=== PATIENT | female | born 1935 | race Caucasian/White ===

== ENCOUNTER → 2019-07-22 | Outpatient (CLI) | payer MEDICARE ==
[2019-07-22 12:17] VITALS: BP 133/83; PULSE 68; RESP 16; TEMP 97.7; BMI 55.2
--- NOTE | 2019-07-22 12:54 | P.GSHP ---
History of Present Illness H&P Date: 07/22/19 Chief Complaint: abnormal ultrasound of the left breast Keyona is an 84-year-old white female who presents for breast evaluation. She states that approximately 3 months ago she noted in the area of increased nodularity in the left breast. That site has not increased in size. It is uncomfortable to pressure. She has not noted any nipple discharge or skin changes. She has not noted any other lumps or masses in her breast. She does not relate any history of trauma or infection in the breast. The patient did have a bilateral mammogram done on [id number] and she was subsequently recommended to have a left breast ultrasound. The left breast ultrasound revealed a 2 x 1.5 cm irregular shadowing mass in the 2 o'clock position at the site of the palpable abnormality. It was recommended she undergo left breast core biopsy. The patient drinks about a 1/2 cup of coffee/day. The patient does not smoke and is not exposed to secondhand smoke. She eats chocolate intermittently. Family history: 1. mother colon cancer 2. daughter: breast cancer DCIS 2011 at 46 3. daughter: leukemia HOrmoanl History: menarche: 14 1 [place], breast fed: yes, first born at 22 menopause: 49 BCP: none hormones: 3 years, than a natural replacement: 3 years Surgical history: 1. back: cyst 2. hip replacement bilateral Medical History: 1. TIA three years ago, some weakness on the left side Social History: smoke: none alcohol: none drugs: none - Constitutional Constitutional: Reports sweats - EENT Comment: wears contacts Eyes: denies blurred vision, denies pain Ears: bilateral: decreased hearing (hearing aids), deny: tinnitus Ears, nose, mouth and throat: Denies headache, Denies sore throat - Breasts Breasts: bilateral: as per HPI - Cardiovascular Cardiovascular: Denies chest pain, Denies shortness of breath - Respiratory Respiratory: Denies cough, Denies 7 - Gastrointestinal Gastrointestinal: Denies abdominal pain, Denies diarrhea, Denies nausea, Denies vomiting - Genitourinary (Female) Comment: bladder sling Genitourinary: Denies dysuria, Denies hematuria - Menstruation Menstruation: Reports postmenopausal - Musculoskeletal Comment: arthritis - Integumentary Integumentary: Denies pruritus, Denies rash - Neurological Comment: TIA - Psychiatric Psychiatric: Denies anxiety, Denies depression - Endocrine Endocrine: Denies fatigue, Denies weight change - Hematologic/Lymphatic Comment: aspirin - Allergic/Immunologic Allergic/Immunologic: Reports as per HPI Medications and Allergies Home Medications Medication Instructions Recorded Confirmed Type Aspirin [Adult Low Dose Aspirin EC] 81 mg PO DAILY 07/22/19 07/22/19 History Cholecalciferol [Vitamin D3 (25 1,000 unit PO DAILY 07/22/19 07/22/19 History Mcg = 1000 Iu)] Cinnamon Bark [Cinnamon] 500 mg PO DAILY 07/22/19 07/22/19 History Flaxseed Oil 1,000 mg PO DAILY 07/22/19 07/22/19 History Folic Acid 0.4 mg PO DAILY 07/22/19 07/22/19 History Ubidecarenone [Co Q-10] 100 mg PO DAILY 07/22/19 07/22/19 History Allergies Allergy/AdvReac Type Severity Reaction Status Date / Time No Known Allergies Allergy Unverified 07/22/19 11:57 Surgical - Exam BMI 25.5 - General well developed, well nourished, no distress - Eyes normal ocular movement, no icteric - ENT no hearing loss, no congestion - Neck no masses, trachea midline - Respiratory normal respiratory effort, clear to auscultation - Cardiovascular Rhythm: regular Heart Sounds: normal: S1, S2 - Abdomen Abdomen: soft, non tender, no guarding, no rigid, no rebound - Integumentary normal turgor - Neurologic no disoriented, no combative - Musculoskeletal normal gait, normal posture - Psychiatric oriented to time, oriented to person, oriented to place, speech is normal, memory intact breast exam: Right breast: Multi-positional exam no dominant masses or nodules of concern, fibrocystic changes Right axilla: No adenopathy of concern Left breast: Multi-positional exam fibrocystic changes, in the upper outer quadrant is approximately 3 x 3 cm area of firmness which corresponds with that which was seen on ultrasound Left axilla: No adenopathy of concern Results ultrasound results reviewed Assessment and Plan Assessment: Impression: 1. left breast mass 2. abnormal ultrasound left breast 3. prior history of TIA 4. family history of cancer 5. family history of bresat cancer Plan: 1. Ultrasound-guided core biopsy of left breast mass. 2. Patient will stop aspirin for 3-5 days prior as per Dr. Valenzuela's office 3. Follow-up after ultrasound core biopsy of left breast Cc: Dr. Valenzuela
== END | disposition home or self-care (01) ==
LOC: WWCWWP 11:35
PROVIDERS: ATTEND Surgery
DX: Z53.9 Procedure and treatment not carried out, unspecified reason (principal)

== ENCOUNTER → 2019-08-01 | Day surgery (SDC) | payer MEDICARE ==
[2019-08-01 07:24] VITALS: RESP 16; TEMP 97.6
[2019-08-01 09:37] VITALS: BP 128/56; PULSE 72
--- NOTE | 2019-08-01 13:37 | USB ---
EXAMINATION TYPE: US biopsy breast VAD LT, MG diagnostic mammo LT wo CAD DATE OF EXAM: 08/01/2019 CLINICAL HISTORY: R92.8 Abnormal Mammogram. TECHNIQUE: Ultrasound guided core biopsy of left breast. COMPARISON: Outside left breast ultrasound and mammogram dated 06/30/2019 and 06/29/2019 respectively. FINDINGS: The procedure of ultrasound guided core biopsy was explained to the patient. Benefits, alt ernatives, and risks were discussed. An informed consent was then obtained. Preprocedural timeout w as performed. Consent was obtained from the patient for the patient's daughter to be in the room duri ng the procedure. The patient was placed in supine positioning for imaging and for the procedure. The overlying skin w as prepped and draped in usual sterile fashion. The approximately 2.4 cm mass was localized under ult rasound of the 2:00 position in the left breast. However on preprocedural imaging this region does el ongated with multiple smaller masses marked on image 2/16 measuring 5.1 cm in total length. It is not ed and discussed with the patient and patient's family that there are likely associated calcification s spanning greater than 10 cm. Stereotactic guided biopsy will be performed of the most anterior site to establish extent of disease. The 10 cc of 1% lidocaine was used as anesthetic into the skin and subcutaneous tissue and 10 cc of l idocaine with epinephrine was utilized to anesthetize the subcutaneous tissues at the site of biopsy. Under ultrasound guidance, a 12-gauge vacuum assisted biopsy gun device was used to obtain 9 core marko ples. The initial 5 core samples yielded only necrotic fluid and therefore biopsies were performed of the periphery of the mass as well. Following this, a coil-shaped biopsy marker was left at the site of biopsy within the mass. Postprocedure mammogram demonstrates appropriate biopsy marker placement The patient tolerated the procedure well without any immediate complication. The patient was kept in the radiology department for short stay after the procedure and then discharged home in stable condi tion. IMPRESSION: Successful, uncomplicated ultrasound guided core biopsy of a highly suspicious necrotic 2 .4 cm left breast mass with multiple smaller masses adjacent to spanning 5.1 cm in total length and a ssociated known calcifications spanning over 10 cm for which stereotactic guided biopsy will be perfo rmed to establish extent of disease, full pathology results to follow.
== END ==
LOC: RADUSWWP 07:08
PROVIDERS: ATTEND Surgery
DX: C50.912 Malignant neoplasm of unspecified site of left female breast (principal)
CPT/HCPCS: 88305; 88342; 88341; 77065; 19083; A4648; J2001

== ENCOUNTER → 2019-08-05 | Outpatient (CLI) | payer MEDICARE ==
[2019-08-05 15:51] VITALS: BP 153/83; PULSE 71; RESP 18; TEMP 97.6; BMI 25.0
--- NOTE | 2019-08-05 17:20 | P.PN ---
Subjective Progress Note Date: 08/05/19 Keyona is an 84-year-old white female who presents for breast evaluation. She states that approximately 3 months ago she noted in the area of increased nodularity in the left breast. That site has not increased in size. It is uncomfortable to pressure. She has not noted any nipple discharge or skin c hanges. She has not noted any other lumps or masses in her breast. She does not relate any history of trauma or infection in the breast. The patient did have a bilateral mammogram done on and she was subsequently recommended to have a left breast ultrasound. The left breast ultrasound revealed a 2 x 1.5 cm irregular shadowing mass in the 2 o'clock position at the site of the palpable abnormality. It was recommended she undergo left breast core biopsy. The patient drinks about a 1/2 cup of coffee/day. The patient does not smoke and is not exposed to secondhand smoke. She eats chocolate intermittently. The patient had a core biopsy of the lesion in the left breast which was positive for invasive ductal carcinoma. Her radiographs were again reviewed with Dr. Uriostegui and it was felt like there is extensive area of microcalcifications of concern and she is scheduled for a stereotactic core biopsy of this area in the near future. Family history: 1. mother colon cancer 2. daughter: breast cancer DCIS 2011 at 46 3. daughter: leukemia HOrmoanl History: menarche: 14 1 [place], breast fed: yes, first born at 22 menopause: 49 BCP: none hormones: 3 years, than a natural replacement: 3 years Surgical history: 1. back: cyst 2. hip replacement bilateral Medical History: 1. TIA three years ago, some weakness on the left side Social History: smoke: none alcohol: none drugs: none - Constitutional Constitutional: Reports sweats - EENT Comment: wears contacts Eyes: denies blurred vision, denies pain Ears: bilateral: decreased hearing (hearing aids), deny: tinnitus Ears, nose, mouth and throat: Denies headache, Denies sore throat - Breasts Breasts: bilateral: as per HPI - Cardiovascular Cardiovascular: Denies chest pain, Denies shortness of breath - Respiratory Respiratory: Denies cough, Denies 7 - Gastrointestinal Gastrointestinal: Denies abdominal pain, Denies diarrhea, Denies nausea, Denies vomiting - Genitourinary (Female) Comment: bladder sling Genitourinary: Denies dysuria, Denies hematuria - Menstruation Menstruation: Reports postmenopausal - Musculoskeletal Comment: arthritis - Integumentary Integumentary: Denies pruritus, Denies rash - Neurological Comment: TIA - Psychiatric Psychiatric: Denies anxiety, Denies depression - Endocrine Endocrine: Denies fatigue, Denies weight change - Hematologic/Lymphatic Comment: aspirin Objective - Vital Signs Vital signs: Vital Signs Temp 97.6 F 08/05/19 15:49 Pulse 71 08/05/19 15:49 Resp 18 08/05/19 15:49 BP 153/83 08/05/19 15:49 Pulse Ox 98 08/05/19 15:49 Intake & Output 08/04/19 08/05/19 08/05/19 18:59 06:59 18:59 Weight 72.575 kg - Exam BMI 25.1 - Constitutional General appearance: Present: average body habitus - EENT Eyes: Present: EOMI ENT: Present: hearing grossly normal - Neck Neck: Present: normal ROM - Respiratory Respiratory: bilateral: CTA - Cardiovascular Rhythm: regular Heart sounds: normal: S1, S2 - Integumentary Integumentary: Present: normal turgor - Psychiatric Psychiatric: Present: A&O x's 3, appropriate affect, intact judgment & insight - Additional findings Additional findings: Left breast: biopsy site clean and dry no evidence of infection palpable mass remains present Assessment and Plan Assessment: Impression: 1. 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 Extensive microcalcifications in left breast for which stereo biopsy scheduled in the near future I have had a long discussion with the patient and her daughter regarding the biopsy results. I believe that the disease is most likely extensive in the breast and would be better able to determine this after stereotactic core biopsy. The patient is very concerned about conserving her breast and has asked about nipple sparing mastectomy and breast reconstruction. Again I do not have all the information yet available and would like to see the results of the stereo biopsy of the microcalcifications. The patient's daughter underwent treatment for breast cancer in the [place] area and is seeking a second opinion at that facility. Plan: 1. Stereotactic core biopsy left breast 2. Follow-up after stero core biopsy
== END | disposition home or self-care (01) ==
LOC: WWCWWP 15:40
PROVIDERS: ATTEND Surgery
DX: Z53.9 Procedure and treatment not carried out, unspecified reason (principal)

== ENCOUNTER → 2019-11-16 | Outpatient (CLI) | payer MEDICARE ==
--- NOTE | 2019-11-16 13:55 | XR ---
EXAMINATION TYPE: XR chest 2V DATE OF EXAM: 11/16/2019 COMPARISON: 06/16/2013 INDICATION: History of breast cancer TECHNIQUE: Frontal and lateral views of the chest are obtained. FINDINGS: The heart size is normal. The pulmonary vasculature is normal. There may be some subtle increased infiltrate within the right lower lobe. Lungs are otherwise clear. Note is made of postsurgical changes within the left breast.. IMPRESSION: 1. Suggestion of a mild posterior right lower lobe infiltrate. Correlate for pneumonia. Follow-up can be performed.
== END | disposition home or self-care (01) ==
LOC: RADXRMAIN 13:09
PROVIDERS: ATTEND Internal Medicine Medical Oncology
DX: C50.412 Malignant neoplasm of upper-outer quadrant of left female breast (principal)
CPT/HCPCS: 71046

== ENCOUNTER → 2021-06-10 | Outpatient (CLI) | payer MEDICARE, OTHER ==
--- NOTE | 2021-06-10 15:34 | XR ---
EXAMINATION TYPE: XR KUB DATE OF EXAM: 06/10/2021 COMPARISON: None HISTORY: Abdomen pain TECHNIQUE: AP abdomen FINDINGS: Normal colonic bowel gas is present. Psoas margins are normal. Organomegaly is not evident. No mass effect is evident. Bilateral hip prostheses are present. IMPRESSION: 1. Unremarkable abdomen
== END | disposition home or self-care (01) ==
LOC: RADXRYALE 14:55
PROVIDERS: ATTEND Internal Medicine Medical Oncology
DX: R10.9 Unspecified abdominal pain (principal)
CPT/HCPCS: 74018

== ENCOUNTER → 2022-10-06 | Outpatient (CLI) | payer MEDICARE, OTHER ==
--- NOTE | 2022-10-06 19:28 | XR ---
EXAMINATION TYPE: XR knee complete bilateral DATE OF EXAM: 10/06/2022 4:55 PM INDICATION: Patient age:Female; 87 years old; Reason for study: [id number],R29.91 LOU KNEE PAIN,RT RIB PAIN; [facility]. COMPARISON: None. TECHNIQUE: Both knees were examined in frontal, lateral, and oblique projections. FINDINGS: No evidence of any acute osseous pathology. No soft tissue swelling or joint effusion not ed. Mild tricompartmental joint space narrowing of both knees. No aggressive osseous lesion. IMPRESSION: 1. No acute osseous pathology. 2. Mild bilateral tricompartmental osteoarthritic changes.
--- NOTE | 2022-10-06 19:30 | XR ---
EXAMINATION TYPE: XR ribs RT w pa chest xray DATE OF EXAM: 10/06/2022 4:55 PM INDICATION: Patient age:Female; 87 years old; Reason for study: [id number],R29.91 LOU KNEE PAIN,RT RIB PAIN; [facility]. COMPARISON: Chest radiograph 11/16/2019. TECHNIQUE: Frontal and oblique views of the right FINDINGS: The ribs have a normal appearance. No evidence of fracture. Overall, the lungs are clear. The cardiac silhouette is normal in size. The remaining osseous structures are intact. Degenerative changes of the visualized spine. Postsurgical changes of the left breast. Few small calcified loose bodies demonstrated within the right shoulder joint. IMPRESSION RIBS: No acute osseous pathology.
== END | disposition home or self-care (01) ==
LOC: RADXRYALE 16:30
PROVIDERS: ATTEND Internal Medicine
DX: R29.91 Unspecified symptoms and signs involving the musculoskeletal system (principal); M17.11 Unilateral primary osteoarthritis, right knee

== ENCOUNTER 2023-04-18 10:39 | Emergency (ER) | payer MEDICARE, OTHER ==
[2023-04-18 12:17] LABS: Basophils % (A) 0 %; Eosinophils % (A) 1 %; HCT 30.2 % (34.0-46.0); HGB 9.6 gm/dL (11.4-16.0); Hypochromasia Moderate; Lymphocytes # (A) 1.1 k/uL (1.0-4.8); Lymphocytes % (A) 21 %; MCH 24.9 pg (25.0-35.0); MCHC 31.8 g/dL (31.0-37.0); MCV 78.2 fL (80.0-100.0); Mean Platelet Volume 9.2; Monocytes # (A) 0.3 k/uL (0-1.0); Monocytes % (A) 6 %; Neutrophils # (A) 3.7 k/uL (1.3-7.7); Neutrophils % (A) 70 %; Platelet Count 248 k/uL (150-450); Poikilocytosis Slight; RBC 3.86 m/uL (3.80-5.40); RDW 15.3 % (11.5-15.5); WBC 5.2 k/uL (3.8-10.6)
--- NOTE | 2023-04-18 12:21 | ED ---
Abdominal Pain HPI - General Chief Complaint: Abdominal Pain Stated Complaint: abd pain Time Seen by Provider: 04/18/23 11:41 Source: patient Mode of arrival: ambulatory Limitations: no limitations - History of Present Illness Initial Comments: 89-year-old female past medical history significant for diverticulosis presents to the ED with a chief complaint of abdominal pain. She states for the past 2 days has had abdominal pain that is worse with standing improved with laying and a heating pad. States her last bowel movement was yesterday nonbloody denies diarrhea or constipation. Denies urinary complaints. Associated nausea no vomiting. She does admit that she did not take her home blood pressure medications today. No other complaints. - Related Data Home Medications Medication Instructions Recorded Confirmed Aspirin [Adult Low Dose Aspirin EC] 81 mg PO DAILY 07/22/19 08/05/19 Cholecalciferol [Vitamin D3 (25 1,000 unit PO DAILY 07/22/19 08/05/19 Mcg = 1000 Iu)] Cinnamon Bark [Cinnamon] 500 mg PO DAILY 07/22/19 08/05/19 Folic Acid 0.4 mg PO DAILY 07/22/19 08/05/19 Rosuvastatin [Crestor] 10 mg PO HS 07/22/19 08/05/19 Ubidecarenone [Co Q-10] 100 mg PO DAILY 07/22/19 08/05/19 flaxseed oiL [Flaxseed Oil] 1,000 mg PO DAILY 07/22/19 08/05/19 Levothyroxine Sodium 100 mcg PO DAILY 07/25/19 08/05/19 Turmeric Root Extract [Turmeric] 500 mg PO DAILY 07/25/19 08/05/19 Allergies Allergy/AdvReac Type Severity Reaction Status Date / Time ciprofloxacin [From Cipro] Allergy Mild Unknown Verified 08/05/19 15:49 Review of Systems ROS Statement: Those systems with pertinent positive or pertinent negative responses have been documented in the HPI. ROS Other: All systems not noted in ROS Statement are negative. Past Medical History Past Medical History: Cancer, Diabetes Mellitus, Hypertension, Thyroid Disorder Additional Past Medical History / Comment(s): peptic ulcers, diverticulosis History of Any Multi-Drug Resistant Organisms: None Reported Past Surgical History: Joint Replacement, Orthopedic Surgery Additional Past Surgical History / Comment(s): breast reconstruction Smoking Status: Never smoker Past Alcohol Use History: None Reported Past Drug Use History: None Reported General Exam Limitations: no limitations General appearance: alert, in no apparent distress Head exam: Present: atraumatic, normocephalic Eye exam: Present: normal appearance ENT exam: Present: normal exam, mucous membranes moist Neck exam: Present: normal inspection Respiratory exam: Present: normal lung sounds bilaterally Cardiovascular Exam: Present: regular rate, normal rhythm, systolic murmur (2/6) GI/Abdominal exam: Present: soft (No rebound guarding or rigidity.), tenderness (Tenderness in the left lower quadrant. No CVA tenderness to palpation bilaterally.) Neurological exam: Present: alert, oriented X3 Psychiatric exam: Present: normal affect, normal mood Skin exam: Present: warm, dry Course Vital Signs 04/18/23 04/18/23 11:16 13:36 Temperature 97.7 F Pulse Rate 74 75 Respiratory 20 16 Rate Blood Pressure 199/79 186/93 O2 Sat by Pulse 98 99 Oximetry Medical Decision Making - Medical Decision Making Was pt. sent in by a medical professional or institution (, PA, POWER HAMMER OPERATOR, urgent care, hospital, or halfway...) When possible be specific @ -No Did you speak to anyone other than the patient for history (EMS, parent, family, police, friend...)? What history was obtained from this source @ -Spoke to patient's daughter who notes history of diverticulosis and history of anemia and hemoglobin of 7 in January Did you review nursing and triage notes (agree or disagree)? Why? @ -I reviewed and agree with nursing and triage notes Were old charts reviewed (outside hosp., previous admission, EMS record, old EKG, old radiological studies, urgent care reports/EKG's, halfway records)? Report findings @ -Old charts reviewed showing no pertinent medical history Differential Diagnosis (chest pain, altered mental status, abdominal pain women, abdominal pain men, vaginal bleeding, weakness, fever, dyspnea, syncope, headache, dizziness, GI bleed, back pain, seizure, CVA, palpatations, mental health, musculoskeletal)? @ -Differential Abdominal Pain Women: Appendicitis, Cholecystitis, diverticulosis, ischemic bowel, pancreatitis, hepatitis, UTI, gastroenteritis, AAA, incarcerated hernia, bowel obstruction, constipation, inflammatory bowel, hepatitis, peptic ulcer disease, splenic infarction, perforated viscus, vulvitis, ovarian torsion, PID, kidney stone, placenta abruption, this is not meant to be an all-inclusive list EKG interpreted by me (3pts min.). @ -As above X-rays interpreted by me (1pt min.). @ -KUB showed no acute process CT interpreted by me (1pt min.). @ -CT of the abdomen and pelvis with contrast showed no acute findings. U/S interpreted by me (1pt. min.). @ -None done What testing was considered but not performed or refused? (CT, X-rays, U/S, labs)? Why? @ -None What meds were considered but not given or refused? Why? @ -None Did you discuss the management of the patient with other professionals (professionals i.e. , PA, POWER HAMMER OPERATOR, lab, RT, psych nurse, social welfare research worker, hog worker, teacher, property disposal officer, telephonic case manager)? Give summary @ -No Was smoking cessation discussed for >3mins.? @ -No Was critical care preformed (if so, how long)? @ -No Were there social determinants of health that impacted care today? How? (Homelessness, low income, unemployed, alcoholism, drug addiction, transportation, low edu. Level, literacy, decrease access to med. care, half-way, rehab)? @ -No Was there de-escalation of care discussed even if they declined (Discuss DNR or withdrawal of care, Hospice)? DNR status @ -No What co-morbidities impacted this encounter? (DM, HTN, Smoking, COPD, CAD, Cancer, CVA, ARF, Chemo, Hep., AIDS, mental health diagnosis, sleep apnea, morbid obesity)? @ -None Was patient admitted / discharged? Hospital course, mention meds given and route, prescriptions, significant lab abnormalities, going to OR and other p ertinent info. @ -Discharged. Labs significant for a hemoglobin of 9.6 however patient notes history of anemia and currently not symptomatic. Labs otherwise unremarkable. Imaging studies showed no acute findings. Patient had improvement of pain with Tylenol. Patient discharged home in stable condition. Undiagnosed new problem with uncertain prognosis? @ -No Drug Therapy requiring intensive monitoring for toxicity (Heparin, Nitro, Insulin, Cardizem)? @ -No Were any procedures done? @ -No Diagnosis/symptom? @ -Diverticulitis Acute, or Chronic, or Acute on Chronic? @ -Acute Uncomplicated (without systemic symptoms) or Complicated (systemic symptoms)? @ -Uncomplicated Side effects of treatment? @ -No Exacerbation, Progression, or Severe Exacerbation? @ -No Poses a threat to life or bodily function? How? (Chest pain, USA, NH, pneumonia, PE, COPD, DKA, ARF, appy, cholecystitis, CVA, Diverticulitis, Homicidal, Suicidal, threat to staff... and all critical care pts) @ -No - Lab Data Result diagrams: 04/18/23 11:51 04/18/23 11:51 Lab Results 04/18/23 04/18/23 04/18/23 Range/Units 11:51 11:51 11:51 WBC 5.2 (3.8-10.6) k/uL RBC 3.86 (3.80-5.40) m/uL Hgb 9.6 L (11.4-16.0) gm/dL Hct 30.2 L (34.0-46.0) % MCV 78.2 L (80.0-100.0) fL MCH 24.9 L (25.0-35.0) pg MCHC 31.8 (31.0-37.0) g/dL RDW 15.3 (11.5-15.5) % Plt Count 248 (150-450) k/uL MPV 9.2 Neutrophils % 70 % Lymphocytes % 21 % Monocytes % 6 % Eosinophils % 1 % Basophils % 0 % Neutrophils # 3.7 (1.3-7.7) k/uL Lymphocytes # 1.1 (1.0-4.8) k/uL Monocytes # 0.3 (0-1.0) k/uL Eosinophils # 0.0 (0-0.7) k/uL Basophils # 0.0 (0-0.2) k/uL Hypochromasia Moderate Poikilocytosis Slight Sodium 131 L (137-145) mmol/L Potassium 4.0 (3.5-5.1) mmol/L Chloride 96 L (98-107) mmol/L Carbon Dioxide 27 (22-30) mmol/L Anion Gap 8 mmol/L BUN 17 (7-17) mg/dL Creatinine 0.96 (0.52-1.04) mg/dL Est GFR (CKD-EPI)AfAm 62 (>60 ml/min/1.73 sqM) Est GFR (CKD-EPI)NonAf 53 (>60 ml/min/1.73 sqM) Glucose 139 H (74-99) mg/dL Calcium 9.4 (8.4-10.2) mg/dL Total Bilirubin 0.9 (0.2-1.3) mg/dL AST 29 (14-36) U/L ALT 22 (4-34) U/L Alkaline Phosphatase 53 (38-126) U/L Total Protein 6.6 (6.3-8.2) g/dL Albumin 3.9 (3.5-5.0) g/dL Amylase 38 (30-110) U/L Lipase 35 (23-300) U/L Urine Color Colorless Urine Appearance Clear (Clear) Urine pH 6.5 (5.0-8.0) Ur Specific [place] 1.004 (1.001-1.035) Urine Protein Negative (Negative) Urine Glucose (UA) Negative (Negative) Urine Ketones Trace H (Negative) Urine Blood Negative (Negative) Urine Nitrite Negative (Negative) Urine Bilirubin Negative (Negative) Urine Urobilinogen <2.0 (<2.0) mg/dL Ur Leukocyte Esterase Moderate H (Negative) Urine RBC 1 (0-5) /hpf Urine WBC 26 H (0-5) /hpf Urine Bacteria Occasional H (None) /hpf - EKG Data EKG Comments: EKG shows a sinus rhythm at [address] or T-wave changes. DC 139, QRS 136, QT/QTC 414/441 Disposition Clinical Impression: Diverticulitis Disposition: HOME SELF-CARE Condition: Good Instructions (If sedation given, give patient instructions): Diverticulitis (ED), Diverticulitis Diet (ED) Additional Instructions: Please return to the Emergency Department if symptoms worsen or any other concerns. Is patient prescribed a controlled substance at d/c from ED?: No Referrals: Jane Valenzuela MD [Primary Care Provider] - 1-2 days Time of Disposition: 16:35
[2023-04-18 12:28] LABS: ALT 22 U/L (4-34); AST 29 U/L (14-36); African American GFR (CKD) 62 (>60 ml/min/1.73 sqM); Albumin 3.9 g/dL (3.5-5.0); Alkaline Phosphatase 53 U/L (38-126); Amylase 38 U/L (30-110); Anion Gap 8 mmol/L; Blood Urea Nitrogen 17 mg/dL (7-17); Calcium 9.4 mg/dL (8.4-10.2); Carbon Dioxide 27 mmol/L (22-30); Chloride 96 mmol/L (98-107); Glucose 139 mg/dL (74-99); Lipase 35 U/L (23-300); Non-African American GFR(CKD) 53 (>60 ml/min/1.73 sqM); Sodium 131 mmol/L (137-145); Total Bilirubin 0.9 mg/dL (0.2-1.3); Total Protein 6.6 g/dL (6.3-8.2)
--- NOTE | 2023-04-18 12:43 | XR ---
EXAMINATION TYPE: XR KUB DATE OF EXAM: 04/18/2023 12:39 PM INDICATION: Patient age:Female; 88 years old; Reason for study: llq pain; COMPARISON: None. TECHNIQUE: One radiographic view of the abdomen was obtained. FINDINGS: The bowel gas pattern is nonspecific without dilated loops of small or large bowel. There i s no evidence for organomegaly or pneumoperitoneum. The osseous structures are intact. Pelvic phleb oliths are present. Fecal material and gas are demonstrated throughout the colon and rectum. Bilate ral hip arthroplasty changes. Hardware appears intact. Multilevel degeneration changes throughout spi ne. IMPRESSION: Nonspecific bowel gas pattern without radiographic evidence for acute process.
[2023-04-18 12:46] LABS: Appearance,Urine Clear (Clear); Bacteria,Urine Occasional /hpf; Bilirubin,Urine Negative (Negative); Blood,Urine Negative (Negative); Color,Urine Colorless; Glucose,Urine (UA) Negative (Negative); Ketones,Urine Trace (Negative); Leukocyte Esterase,Urine Moderate (Negative); Nitrite,Urine Negative (Negative); PH, Urine 6.5 (5.0-8.0); Protein,Urine Negative (Negative); RBC,Urine 1 /hpf (0-5); Specific Gravity,Urine 1.004 (1.001-1.035); Urobilinogen,Urine <2.0 mg/dL (<2.0); WBC,Urine 26 /hpf (0-5)
[2023-04-18] MEDS ORDERED: ACETAMINOPHEN TAB 325 MG TAB PO STA (13:22)
[2023-04-18 13:39] VITALS: RESP 16
[2023-04-18] MEDS ORDERED: IOPAMIDOL CONTRAST (ORAL USE) VIAL PO PRN (13:47)
--- NOTE | 2023-04-18 16:23 | CT ---
EXAMINATION TYPE: CT abdomen pelvis w con CT DLP: 911.7 mGycm, Automated exposure control for dose reduction was used. DATE OF EXAM: 04/18/2023 4:05 PM COMPARISON: None. CLINICAL INDICATION:Female, 88 years old with history of abdominal pain; ABD PAIN TECHNIQUE: Axial CT of the abdomen and pelvis. Sagittal and coronal reformats were created on a Performable workstation. Contrast used:100 mL of Isovue 370 with IV Contrast, Oral contrast used: with Oral Contrast FINDINGS: LOWER CHEST: Unremarkable ABDOMEN LIVER: Unremarkable GALLBLADDER AND BILE DUCTS: Gallbladder is distended. PANCREAS: Unremarkable SPLEEN: Hypodense lesions throughout the spleen. The largest measuring up to 15 mm. ADRENAL GLANDS: Unremarkable. KIDNEYS AND URETERS: No evidence of hydronephrosis or renal calculus. The ureters are unremarkable. B ilateral renal cysts. PELVIS BLADDER: Unremarkable REPRODUCTIVE: Left ovarian cyst measuring 15 mm. ABDOMEN & PELVIS STOMACH AND BOWEL: No evidence of bowel obstruction. Few scattered colonic diverticula. No evidence f or inflammation around the diverticula. Moderate stool burden throughout the colon. PERITONEUM/RETROPERITONEUM: No evidence of pneumoperitoneum or free fluid. VASCULATURE: No evidence of aortic aneurysm. Infrarenal aortic ectasia measuring up to 2.7 cm. MUSCULOSKELETAL: No evidence for acute fracture. There is degeneration changes to the spine worse inderjit ng the facet joints and spinous processes with pseudoarthrosis. Grade 1 anterolisthesis of L3 on L4 a nd L4 on L5. Hip arthroplasties which limits evaluation of the pelvis. Hardware appears intact. LYMPH NODES: No gross evidence for lymphadenopathy. SOFT TISSUE/ABDOMINAL WALL: Unremarkable IMPRESSION: 1. No evidence for acute abdominal process. No evidence for diverticulitis. There are colonic divert icula. Evaluation of the pelvis is limited. 2. Bilateral simple appearing renal cysts. 3. Splenic hypodensities could represent hemangiomas versus cysts versus other etiologies. 4. Grade 1 anterolisthesis of L3 on L4 and L4 on L5. 5. Findings suggestive of Baastrup's disease.
[2023-04-18 17:07] VITALS: BP 165/75; PULSE 68; TEMP 98
== END 2023-04-18 17:16 | disposition home or self-care (01) ==
LOC: EC 10:39
DX: K57.32 Diverticulitis of large intestine without perforation or abscess without bleeding (principal); E11.9 Type 2 diabetes mellitus without complications; I10 Essential (primary) hypertension; E07.9 Disorder of thyroid, unspecified; Z88.1 Allergy status to other antibiotic agents; Z79.82 Long term (current) use of aspirin; Z79.890 Hormone replacement therapy; Z79.899 Other long term (current) drug therapy
CPT/HCPCS: 36415; 93005; 80053; 82150; 83690; 85025; 81001; 74018; 74177; 99285; Q9967

== ENCOUNTER 2024-05-24 16:48 | Emergency (ER) | payer MEDICARE, OTHER ==
[2024-05-24 16:54] VITALS: TEMP 97.7
--- NOTE | 2024-05-24 17:44 | ED ---
Eye Problem HPI - General Source: patient, family, RN notes reviewed Mode of arrival: wheelchair Limitations: no limitations <Radha Hewitt - Last Filed: 05/24/24 17:40> <Kim Chandler - Last Filed: 05/25/24 00:46> - General Chief complaint: Neuro Symptoms/Deficit Stated complaint: Vision issues-Sent by eye dr Time Seen by Provider: 05/24/24 17:40 - History of Present Illness Initial comments: Quick Note: This is an 89-year-old female who presents to the emergency department for concerns related to her eyes. Patient had cataract surgery last month and had a follow-up appointment with her patient relations representative today. She was told that there is a visual deficit in the right eye that worsened over 3 weeks and they were concerned about a stroke. Patient has not noticed anything different from her perspective. States that she might be struggling more so with reading. Denies any pain in her eyes. She has had a stroke in the past, but states that it was several years ago. Not taking any blood thinners. (Radha Hewitt) 89-year-old female who presents emergency department from her ophthalmology office. Patient had cataract repair done 1 month ago. She had a follow-up appointment today. They did a visual acuity and noted that the patient has loss of vision in her bilateral lower right quadrants. Patient has not noted any visual disturbance. When asked about the patient's vision she states that she is having a harder time reading up close but denies any identifiable acute visual changes. She denies any pain. No drainage. No fevers. Records And Information Manager was concerned that the patient had a stroke and therefore directed her to the emergency department. She reports a history of stroke but she does not take any blood thinners. Denies any head injuries. No other alleviating, precipitating modifying factors (Kim Chandler) - Related Data Home Medications Medication Instructions Recorded Confirmed Folic Acid 0.4 mg PO DAILY 07/22/19 05/24/24 Rosuvastatin [Crestor] 10 mg PO HS 07/22/19 05/24/24 Ubidecarenone [Co Q-10] 100 mg PO DAILY 07/22/19 05/24/24 Anastrozole [Arimidex] 1 mg PO DAILY 05/24/24 05/24/24 Cholecalciferol [Vitamin D3 (10 10 mcg PO DAILY 05/24/24 05/24/24 Mcg = 400 Iu)] Cyanocobalamin (Vitamin B-12) 2,500 mcg PO DAILY 05/24/24 05/24/24 [Vitamin B-12] DULoxetine HCL [Cymbalta] 20 mg PO HS 05/24/24 05/24/24 Donepezil [Aricept] 5 mg PO HS 05/24/24 05/24/24 Levothyroxine Sodium [Synthroid] 125 mcg PO DAILY 05/24/24 05/24/24 Meclizine [Antivert] 25 mg PO Q6H PRN 05/24/24 05/24/24 Pantoprazole [Protonix] 40 mg PO BID 05/24/24 05/24/24 diazePAM 10 mg PO DAILY PRN 05/24/24 05/24/24 Allergies Allergy/AdvReac Type Severity Reaction Status Date / Time ciprofloxacin [From Cipro] Allergy Mild Joint Verified 05/24/24 20:40 pain, throat pain Review of Systems ROS Other: All systems not noted in ROS Statement are negative. <Radha Hewitt - Last Filed: 05/24/24 17:40> ROS Other: All systems not noted in ROS Statement are negative. <Kim Chandler - Last Filed: 05/25/24 00:46> ROS Statement: Those systems with pertinent positive or pertinent negative responses have been documented in the HPI. Past Medical History Past Medical History: Cancer, Diabetes Mellitus, Hypertension, Thyroid Disorder Additional Past Medical History / Comment(s): peptic ulcers, diverticulosis History of Any Multi-Drug Resistant Organisms: None Reported Past Surgical History: Joint Replacement, Orthopedic Surgery Additional Past Surgical History / Comment(s): breast reconstruction, cataract surgery (April 2024) Smoking Status: Never smoker Past Alcohol Use History: None Reported Past Drug Use History: None Reported <Radha Hewitt - Last Filed: 05/24/24 17:40> General Exam Limitations: no limitations <Radha Hewitt - Last Filed: 05/24/24 17:40> General appearance: alert, in no apparent distress Head exam: Present: atraumatic, normocephalic, normal inspection Eye exam: Present: normal appearance, PERRL, EOMI. Absent: scleral icterus, conjunctival injection, periorbital swelling ENT exam: Present: normal exam, mucous membranes moist Neck exam: Present: normal inspection. Absent: tenderness, meningismus, lymphadenopathy Respiratory exam: Present: normal lung sounds bilaterally. Absent: respiratory distress, wheezes, rales, rhonchi, stridor Cardiovascular Exam: Present: regular rate, normal rhythm, normal heart sounds. Absent: systolic murmur, diastolic murmur, rubs, gallop, clicks GI/Abdominal exam: Present: soft, normal bowel sounds. Absent: distended, tenderness, guarding, rebound, rigid Extremities exam: Present: normal inspection, full ROM, normal capillary refill. Absent: tenderness, pedal edema, joint swelling, calf tenderness Back exam: Present: normal inspection Neurological exam: Present: alert, oriented X3, CN II-XII intact Psychiatric exam: Present: normal affect, normal mood Skin exam: Present: warm, dry, intact, normal color. Absent: rash <Kim Chandler - Last Filed: 05/25/24 00:46> - General Exam Comments Initial Comments: Visual Physical Exam Vital signs reviewed General: Well-appearing, nontoxic, no acute distress. Head: Normocephalic, atraumatic Eyes: PERRLA, EOMI ENT: Airway patent Chest: Nonlabored breathing Skin: No visual rash, normal skin tone Neuro: Alert and oriented 3 Musculoskeletal: No gross abnormalities (Radha Hewitt) Course Vital Signs 05/24/24 05/24/24 05/24/24 16:51 18:43 21:00 Temperature 97.7 F Pulse Rate 64 59 L 72 Respiratory 18 18 18 Rate Blood Pressure 149/80 148/90 129/78 O2 Sat by Pulse 96 97 98 Oximetry 05/24/24 21:46 Temperature Pulse Rate 87 Respiratory 16 Rate Blood Pressure 148/84 O2 Sat by Pulse 97 Oximetry Medical Decision Making <Radha Hewitt - Last Filed: 05/24/24 17:40> - Lab Data Result diagrams: 05/24/24 19:00 05/24/24 19:00 <Kim Chandler - Last Filed: 05/25/24 00:46> - Medical Decision Making I performed the QuickNote portion of this chart. Signed Radha Hewitt PA-C. (Radha Hewitt) Was pt. sent in by a medical professional or institution ([employer], [employer], urgent care, hospital, or long-term...) When possible be specific @ -Patient was sent in from the ophthalmology office Did you speak to anyone other than the patient for history (EMS, parent, family, police, friend...)? What history was obtained from this source @ -I spoke with the patient's family member for history Did you review nursing and triage notes (agree or disagree)? Why? @ -I reviewed and agree with nursing and triage notes Were old charts reviewed (outside hosp., previous admission, EMS record, old EKG, old radiological studies, urgent care reports/EKG's, long-term records)? Report findings @ -I reviewed paperwork from patient's ophthalmology office which was done earlier today Differential Diagnosis (chest pain, altered mental status, abdominal pain women, abdominal pain men, vaginal bleeding, weakness, fever, dyspnea, syncope, hea dache, dizziness, GI bleed, back pain, seizure, CVA, palpatations, mental health, musculoskeletal)? @ -Differential CVA Ischemic stroke, hemorrhagic stroke, brain tumor, atypical migraine, Wernicke's encephalopathy, seizure, multiple sclerosis, meningitis, encephalitis, hypoglycemia, Guillain-Scott, electrolytes disturbance, myasthenia gravis.... This is not meant to be an all-inclusive list EKG interpreted by me (3pts min.). @ -Not done X-rays interpreted by me (1pt min.). @ -None done CT interpreted by me (1pt min.). @ -Yes and demonstrates no acute process U/S interpreted by me (1pt. min.). @ -None done What testing was considered but not performed or refused? (CT, X-rays, U/S, labs )? Why? @ -MRI and neurology consultation. Patient refused and stated she wanted to go home What meds were considered but not given or refused? Why? @ -Aspirin as patient refused Did you discuss the management of the patient with other professionals (professionals i.e. [employer], [employer], lab, RT, psych nurse, social work assistant, auto mechanics instructor, teacher, chief safety officer, showcase maker)? Give summary @ -No Was smoking cessation discussed for >3mins.? @ -No Was critical care preformed (if so, how long)? @ -No Were there social determinants of health that impacted care today? How? (Homelessness, low income, unemployed, alcoholism, drug addiction, transportation, low edu. Level, literacy, decrease access to med. care, half-way, rehab)? @ -No Was there de-escalation of care discussed even if they declined (Discuss DNR or withdrawal of care, Hospice)? DNR status @ -No What co-morbidities impacted this encounter? (DM, HTN, Smoking, COPD, CAD, Cancer, CVA, ARF, Chemo, Hep., AIDS, mental health diagnosis, sleep apnea, morbid obesity)? @ -None Was patient admitted / discharged? Hospital course, mention meds given and route, prescriptions, significant lab abnormalities, going to OR and other pertinent info. @ -Upon arrival patient seen and evaluated in room 23. Thorough history and physical exam was performed. I did review the paperwork from the ophthalmology office that demonstrates that the patient has a bilateral quadrantanopsia. Laboratory studies were conducted and the patient did go for CT and CT angiography. Stroke is still not identified on imaging. I did recommend giving the patient an aspirin however she refused due to ulcer history. I also recommended admission. Patient refused. Her family was at bedside and attempts to help me to convince her to stay hospitalized. Patient is of sound mind and capable of making her own decisions. Patient is adamant that she does not want to be admitted. Patient will be discharged home knowing the risks which include permanent disability and even . She is able to restate these risks in her own words. Patient was follow-up with her primary care doctor for MRI and neurology evaluation. Return for any new or worsening symptoms. Patient agreeable plan was discharged in stable condition Undiagnosed new problem with uncertain prognosis? @ -No Drug Therapy requiring intensive monitoring for toxicity (Heparin, Nitro, Insulin, Cardizem)? @ -No Were any procedures done? @ -No Diagnosis/symptom? @ -Acute right lower quadrant hemianopsia, suspected CVA Acute, or Chronic, or Acute on Chronic? @ -Acute Uncomplicated (without systemic symptoms) or Complicated (systemic symptoms)? @ -Complicated Side effects of treatment? @ -No Exacerbation, Progression, or Severe Exacerbation? @ -No Poses a threat to life or bodily function? How? (Chest pain, [place], HI, pneumonia, PE, COPD, DKA, ARF, appy, cholecystitis, CVA, Diverticulitis, Homicidal, Suicidal, threat to staff... and all critical care pts) @ -No (Kim Chandler) - Lab Data Lab Results 05/24/24 05/24/24 05/24/24 Range/Units 19:00 19:00 19:00 WBC 5.7 (3.8-10.6) k/uL RBC 3.94 (3.80-5.40) m/uL Hgb 12.3 (11.4-16.0) gm/dL Hct 37.4 (34.0-46.0) % MCV 95.1 (80.0-100.0) fL MCH 31.3 (25.0-35.0) pg MCHC 32.9 (31.0-37.0) g/dL RDW 13.1 (11.5-15.5) % Plt Count 186 (150-450) k/uL MPV 8.8 Neutrophils % 54 % Lymphocytes % 33 % Monocytes % 7 % Eosinophils % 4 % Basophils % 1 % Neutrophils # 3.1 (1.3-7.7) k/uL Lymphocytes # 1.9 (1.0-4.8) k/uL Monocytes # 0.4 (0-1.0) k/uL Eosinophils # 0.2 (0-0.7) k/uL Basophils # 0.0 (0-0.2) k/uL PT 10.4 (10.0-12.5) sec INR 0.9 (<1.2) APTT 24.8 (22.0-30.0) sec Sodium 139 (137-145) mmol/L Potassium 4.2 (3.5-5.1) mmol/L Chloride 105 (98-107) mmol/L Carbon Dioxide 30 (22-30) mmol/L Anion Gap 4 mmol/L BUN 25 H (7-17) mg/dL Creatinine 0.92 (0.52-1.04) mg/dL Est GFR (CKD-EPI)AfAm 65 (>60 ml/min/1.73 sqM) Est GFR (CKD-EPI)NonAf 56 (>60 ml/min/1.73 sqM) Glucose 93 (74-99) mg/dL Calcium 9.4 (8.4-10.2) mg/dL Total Bilirubin 0.6 (0.2-1.3) mg/dL AST 30 (14-36) U/L ALT 20 (4-34) U/L Alkaline Phosphatase 52 (38-126) U/L Total Protein 6.2 L (6.3-8.2) g/dL Albumin 3.8 (3.5-5.0) g/dL Disposition <Radha Hewitt - Last Filed: 05/24/24 17:40> Is patient prescribed a controlled substance at d/c from ED?: No Time of Disposition: 21:34 <Kim Chandler - Last Filed: 05/25/24 00:46> Clinical Impression: CVA (cerebral vascular accident), Visual disturbance Disposition: HOME SELF-CARE Condition: Stable Instructions (If sedation given, give patient instructions): Ischemic Stroke (DC) Additional Instructions: There is concern that you had a stroke. Admission was recommended. You must follow-up with your primary care doctor to have them order an MRI. I do recommend that you take an aspirin a day. Return for any new or worsening symptoms Referrals: Jane Valenzuela MD [Primary Care Provider] - 1-2 days
--- NOTE | 2024-05-24 18:00 | CT ---
EXAMINATION TYPE: CT brain wo con DATE OF EXAM: 05/24/2024 COMPARISON: None HISTORY: Visual field deficit, cataract surgery x 1-[address] DLP: 1156.[address] of the brain was performed. The ventricles, basal cisterns and sulci overlying the cerebral convexities demonstrate mild enlargem ent. There is no evidence for intracranial hemorrhage or sulcal effacement. There is decreased attenuation about the periventricular white matter and deep white matter of both c erebral hemispheres, compatible with chronic small vessel ischemia. Differential diagnosis does inclu de demyelination. No mass effects are seen.No midline shift. Osseous calvarium is intact. If symptoms persist consider MRI. IMPRESSION: 1. Age related atrophic and chronic small vessel ischemic change without acute intracranial process s een at this time.
[2024-05-24 19:20] LABS: Basophils % (A) 1 %; Eosinophils # (A) 0.2 k/uL (0-0.7); Eosinophils % (A) 4 %; HCT 37.4 % (34.0-46.0); HGB 12.3 gm/dL (11.4-16.0); Lymphocytes # (A) 1.9 k/uL (1.0-4.8); Lymphocytes % (A) 33 %; MCH 31.3 pg (25.0-35.0); MCHC 32.9 g/dL (31.0-37.0); MCV 95.1 fL (80.0-100.0); Mean Platelet Volume 8.8; Monocytes # (A) 0.4 k/uL (0-1.0); Monocytes % (A) 7 %; Neutrophils # (A) 3.1 k/uL (1.3-7.7); Neutrophils % (A) 54 %; Platelet Count 186 k/uL (150-450); RBC 3.94 m/uL (3.80-5.40); RDW 13.1 % (11.5-15.5); WBC 5.7 k/uL (3.8-10.6)
[2024-05-24 19:37] LABS: ALT 20 U/L (4-34); AST 30 U/L (14-36); African American GFR (CKD) 65 (>60 ml/min/1.73 sqM); Albumin 3.8 g/dL (3.5-5.0); Alkaline Phosphatase 52 U/L (38-126); Anion Gap 4 mmol/L; Blood Urea Nitrogen 25 mg/dL (7-17); Calcium 9.4 mg/dL (8.4-10.2); Carbon Dioxide 30 mmol/L (22-30); Chloride 105 mmol/L (98-107); Glucose 93 mg/dL (74-99); Non-African American GFR(CKD) 56 (>60 ml/min/1.73 sqM); Potassium 4.2 mmol/L (3.5-5.1); Sodium 139 mmol/L (137-145); Total Bilirubin 0.6 mg/dL (0.2-1.3); Total Protein 6.2 g/dL (6.3-8.2)
[2024-05-24 19:40] LABS: INR 0.9 (<1.2); Partial Thromboplastin Time 24.8 sec (22.0-30.0); Prothrombin Time 10.4 sec (10.0-12.5)
--- NOTE | 2024-05-24 21:19 | CT ---
EXAMINATION TYPE: CT angio head neck CT DLP: 379.6 mGycm, Automated exposure control for dose reduction was used. DATE OF EXAM: 05/24/2024 8:15 PM COMPARISON: CT head of the same day. CLINICAL INDICATION:Female, 89 years old with history of stroke; [facility], CT brain w/o done earlier today , Physcian suspects stroke. TECHNIQUE: Axially acquired helical CT angiogram of the head and neck was obtained with contrast. Axi al images are supplemented with 3D reconstructions and MIP images which were post-processed at an in dependent workstation. NASCET criteria used. Contrast used:65ml mL of Isovue 370 with IV Contrast, Oral contrast used: None. FINDINGS: CTA HEAD: Please see CT head noncontrasted study from the same day for further intracranial details.. The visualized portions of the internal carotid arteries, middle cerebral arteries, anterior cerebral arteries, and posterior cerebral arteries are patent. The bilateral posterior communicating arteries are patent. The basilar and vertebral arteries are patent. The right vertebral artery is slightly diminutive in c omparison to the left. CTA NECK: Right Carotid System: The common carotid artery and external carotid artery are patent. The carotid bifurcation demonstrate s no significant calcifications and no evidence of hemodynamically significant stenosis. The remainin g portions of the internal carotid artery demonstrate normal size without significant narrowing. Left Carotid System: The common carotid artery and external carotid artery are patent. The carotid bifurcation demonstrate s no significant calcifications and no evidence of hemodynamically significant stenosis. The remainin g portions of the internal carotid artery demonstrate normal size without significant narrowing. Vertebral arteries are patent without evidence hemodynamically significant stenosis. There is a three-vessel aortic arch. The origins of the great vessels are patent. No evidence of hemo dynamically significant stenosis. Upper thorax: The lungs are clear. Airways are patent. There is degenerative changes of the visualized spinal no ac vika osseous abnormalities. IMPRESSION: 1. No evidence of dissection of the cervical internal carotid arteries or vertebral arteries or any e vidence of significant stenosis at the carotid bifurcations. 2. No evidence of intracranial high-grade stenosis or intracranial aneurysm.
[2024-05-24 21:47] VITALS: BP 148/84; PULSE 87; RESP 16
== END 2024-05-24 21:47 | disposition home or self-care (01) ==
LOC: EC 16:48
DX: H53.141 Visual discomfort, right eye (principal); I63.9 Cerebral infarction, unspecified; Z88.1 Allergy status to other antibiotic agents
CPT/HCPCS: 36415; 80053; 85025; 85610; 85730; 70496; 70450; 70498; 99284; Q9967